=== PATIENT | female | born 1980 | race Caucasian/White ===

== ENCOUNTER 2018-09-30 07:40 | Day surgery (SDC) | payer OTHER ==
[~2018-09-30] VITALS: Ht 170.2 cm; Wt 85.9 kg
[2018-09-30 08:04] VITALS: BP 106/71
[2018-09-30] MEDS ORDERED: OXYTOCIN 10 UNITS/ML, 1ML ONE (08:50)
[2018-09-30] MEDS ORDERED: LIDOCAINE 1%, 20ML ONE (08:50)
[2018-09-30] MEDS ORDERED: SILVER NITRATE STICK TP ONE (08:50)
[2018-09-30] MEDS ORDERED: MISOPROSTOL 200 MCG TABLET ONE (08:50)
[2018-09-30] MEDS ORDERED: VASOPRESSIN 20 UNIT/ML, 1ML ONE (08:51)
[2018-09-30] MEDS ORDERED: METHYLERGONOVINE 0.2 MG/ML IM ONE (08:51)
[2018-09-30] MEDS ORDERED: FENTANYL PF 100 MCG/2ML ONE (09:25)
[2018-09-30] MEDS ORDERED: MIDAZOLAM 1 MG/ML, 2ML ONE (09:27)
[2018-09-30 09:41] LABS: BASOPHILS # (AUTO) 0.04 x10^3/uL (0-0.1); BASOPHILS % (AUTO) 1 % (0-1); EOSINOPHILS # (AUTO) 0.11 x10^3/uL (0-0.4); EOSINOPHILS % (AUTO) 2 % (1-7); LYMPHOCYTES # (AUTO) 1.37 x10^3/uL (1-3.4); LYMPHOCYTES % (AUTO) 23 % (22-44); MD NO; MEAN CORPUSCULAR HEMOGLOBIN 31.3 pg (27.0-34.8); MEAN CORPUSCULAR HGB CONC 33.6 g/dL (32.4-35.8); MEAN CORPUSCULAR VOLUME 93.2 fL (80-100); MEAN PLATELET VOLUME 9.5 fL (7.4-10.4); MONOCYTES # (AUTO) 0.41 x10^3/uL (0.2-0.8); MONOCYTES % (AUTO) 7 % (2-9); NEUTROPHILS # (AUTO) 4.08 x10^3/uL (1.8-6.8); NEUTROPHILS % (AUTO) 68 % (42-75); PLATELET COUNT 249 x10^3/uL (130-400); RED BLOOD COUNT 4.18 x10^6/uL (3.82-5.3); RED CELL DISTRIBUTION WIDTH 13.5 % (9.6-15.2)
[2018-09-30] MEDS ORDERED: KETOROLAC 30 MG/1 ML ONE (09:50)
[2018-09-30] MEDS ORDERED: DEXAMETHASONE 4 MG/ML, 1ML ONE (09:50)
[2018-09-30] MEDS ORDERED: ONDANSETRON 2MG/ML, 2ML ONE (09:50)
[2018-09-30] MEDS ORDERED: PROPOFOL 10 MG/ML, 20ML ONE (09:50)
[2018-09-30] MEDS ORDERED: OXYcodone 5 MG/5 ML ORAL.SOL UDC PO PRN (10:30)
[2018-09-30] MEDS ORDERED: PLEASE ENTER ALLERGIES MC SCH (10:30)
[2018-09-30] MEDS ORDERED: HYDROmorphone 2 MG/ML, 1ML IVPush PRN (10:30)
[2018-09-30] MEDS ORDERED: ACETAMINOPHEN 325 MG TABLET PO PRN (10:30)
[2018-09-30] MEDS ORDERED: DIAZEPAM 5 MG/ML, 2ML IVPush PRN (10:30)
[2018-09-30] MEDS ORDERED: ONDANSETRON 2MG/ML, 2ML IV PRN ×2 (10:30→12:30)
[2018-09-30] MEDS ORDERED: MEPERIDINE/PF 25MG/0.5ML IVPush PRN (10:30)
[2018-09-30] MEDS ORDERED: ONDANSETRON ODT 8 MG PO PRN (10:30)
[2018-09-30] MEDS ORDERED: FENTANYL PF 100 MCG/2ML IV PRN (10:30)
[2018-09-30 10:34] VITALS: BP 86/41
[2018-09-30] MEDS ORDERED: ACETAMINOPHEN 325 MG TABLET ONE (10:53)
[2018-09-30] MEDS ORDERED: morphine SULFATE 10 MG/ML, 1ML IV PRN (12:30)
[2018-09-30] MEDS ORDERED: OXYcodone/APAP 5/325MG TABLET PO PRN (12:30)
[2018-09-30] MEDS ORDERED: PROMETHAZINE 25 MG/ML, 1ML IV ONE (12:30)
[2018-09-30] MEDS ORDERED: KETOROLAC 30 MG/1 ML IV PRN (12:30)
[2018-09-30] MEDS ORDERED: PROMETHAZINE 12.5 MG SUPP PR ONE (12:30)
== END 2018-09-30 13:05 | disposition home or self-care (01) ==
LOC: OR 07:40 → 4NOR 07:49 → OR 13:05
PROVIDERS: ATTEND Obstetrics & Gynecology
DX: O02.1 Missed abortion (principal)
CPT/HCPCS: 36415; 59820; 84702; 85025; 86850; 86900; 88305; J1100; J1885; J2250; J2405; J2590; J2704; J2790; J3010; J3490; G0378; J2210

== ENCOUNTER → 2020-03-14 | Outpatient (CLI) | payer OTHER | END | disposition home or self-care (01) | LOC: STAR 08:00 | PROVIDERS: ATTEND Obstetrics & Gynecology | DX: Z01.818 Encounter for other preprocedural examination (principal); Z11.59 Encounter for screening for other viral diseases | CPT/HCPCS: 36415; 87635 ==

== ENCOUNTER 2020-03-22 15:19 | Inpatient (IN) | payer OTHER ==
[~2020-03-22] VITALS: Ht 170.2 cm; Wt 107.0 kg
[2020-03-26] MEDS ORDERED: OXYTOCIN 30U/ 0.9% NaCL 500ML 500 ML IV ONE (21:52)
[2020-03-26] MEDS ORDERED: D5%-LACTATED RINGERS 1,000 ML IV SCH (21:52)
[2020-03-26] MEDS ORDERED: OXYTOCIN 30U/ 0.9% NaCL 500ML 500 ML IV PRN (21:52)
[2020-03-26] MEDS ORDERED: METOCLOPRAMIDE 5 MG/ML, 2ML IVPush PRN (22:00)
[2020-03-26] MEDS ORDERED: SODIUM CITRATE/CITRIC ACID 30 ML UDC PO PRN (22:00)
[2020-03-26] MEDS ORDERED: FENTANYL PF 100 MCG/2ML IV PRN (22:00)
[2020-03-26] MEDS ORDERED: TERBUTALINE 1 MG/ML, 1ML SQ PRN (22:00)
[2020-03-26] MEDS ORDERED: MISOPROSTOL 25 MCG TABLET VG PRN (22:00)
[2020-03-26] MEDS ORDERED: FENTANYL PF 100 MCG/2ML IVPush PRN (22:00)
[2020-03-26] MEDS ORDERED: TERBUTALINE 1 MG/ML, 1ML IVPush PRN (22:00)
[2020-03-26] MEDS: LACTATED RINGERS 1,000 ML IV SCH (22:20)
[2020-03-26] MEDS ORDERED: MISOPROSTOL 25 MCG TABLET ONE (22:25)
[2020-03-26] MEDS ORDERED: NEWBORN KIT ONE (22:26)
[2020-03-26] MEDS ORDERED: MISOPROSTOL 200 MCG TABLET ONE (22:26)
[2020-03-26] MEDS ORDERED: OXYTOCIN 30U/ 0.9% NaCL 500ML 500 ML ONE (22:26)
[2020-03-26 22:36] LABS: BASOPHILS # (AUTO) 0.04 x10^3/uL (0-0.1); BASOPHILS % (AUTO) 0 % (0-1); EOSINOPHILS # (AUTO) 0.04 x10^3/uL (0-0.4); EOSINOPHILS % (AUTO) 0 % (1-7); LYMPHOCYTES % (AUTO) 17 % (22-44); MD NO; MEAN CORPUSCULAR HEMOGLOBIN 32.1 pg (27.0-34.8); MEAN CORPUSCULAR HGB CONC 33.3 g/dL (32.4-35.8); MEAN CORPUSCULAR VOLUME 96.2 fL (80-100); MEAN PLATELET VOLUME 10.4 fL (7.4-10.4); MONOCYTES % (AUTO) 6 % (2-9); NEUTROPHILS # (AUTO) 9.65 x10^3/uL (1.8-6.8); NEUTROPHILS % (AUTO) 76 % (42-75); PLATELET COUNT 227 x10^3/uL (130-400); RED BLOOD COUNT 4.03 x10^6/uL (3.82-5.3); RED CELL DISTRIBUTION WIDTH 14.3 % (9.6-15.2)
[2020-03-27] MEDS ORDERED: PENICILLIN GK 5,000,000 UNITS in DEXTROSE 5% 100 ML IVPB ONE (05:00)
[2020-03-27] MEDS ORDERED: ONDANSETRON 2MG/ML, 2ML ONE ×2 (09:13→21:45)
[2020-03-27] MEDS: ONDANSETRON 2MG/ML, 2ML IVPush PRN ×2 (09:21→21:47)
[2020-03-27] MEDS ORDERED: FENTANYL PF 100 MCG/2ML ONE (09:53)
[2020-03-27] MEDS ORDERED: FENTANYL/BUPIV./NS/PF 250 ML EPIDCONT ONE (09:54)
[2020-03-27] MEDS: LACTATED RINGERS 1,000 ML IV SCH ×2 (10:00→10:54)
[2020-03-27] MEDS: PENICILLIN GK 2,500,000 UNITS in DEXTROSE 5% 100 ML IVPB SCH ×4 (10:07→23:13)
[2020-03-27] MEDS ORDERED: BUPIVACAINE 0.25% ONE (10:52)
[2020-03-27] MEDS ORDERED: FENTANYL/BUPIV./NS/PF 250 ML EPIDCONT SCH (11:30)
[2020-03-27] MEDS ORDERED: LACTATED RINGERS 1,000 ML IVBOLUS PRN (11:30)
[2020-03-27] MEDS ORDERED: DIPHENHYDRAMINE 50 MG/ML, 1ML IVPush PRN (11:30)
[2020-03-27] MEDS ORDERED: EPHEDRINE 50 MG/ML, 1ML IVPush PRN (11:30)
[2020-03-27] MEDS ORDERED: NALOXONE 0.4 MG/ML, 1ML IVPush PRN (11:30)
[2020-03-27] MEDS ORDERED: LACTATED RINGERS 1,000 ML IV SCH (11:30)
[2020-03-27] MEDS ORDERED: ONDANSETRON 2MG/ML, 2ML IVPush PRN (11:30)
[2020-03-27] MEDS ORDERED: TERBUTALINE 1 MG/ML, 1ML ONE (19:23)
[2020-03-28] MEDS ORDERED: FENTANYL/BUPIV./NS/PF 250 ML EPIDCONT ONE (00:08)
[2020-03-28] MEDS ORDERED: METOCLOPRAMIDE 5 MG/ML, 2ML ONE (01:56)
[2020-03-28] MEDS ORDERED: SODIUM CITRATE/CITRIC ACID 30 ML UDC ONE ×3 (01:56→02:09)
[2020-03-28] MEDS ORDERED: LACTATED RINGERS 1,000 ML IVBOLUS ONE (02:00)
[2020-03-28] MEDS ORDERED: AZITHROMYCIN 500 MG in SODIUM CHLORIDE 0.9% 250 ML IV ONE (02:00)
[2020-03-28] MEDS ORDERED: SODIUM CITRATE/CITRIC ACID 30 ML UDC PO ONE (02:00)
[2020-03-28] MEDS ORDERED: METOCLOPRAMIDE 5 MG/ML, 2ML IV ONE (02:00)
[2020-03-28] MEDS ORDERED: CEFAZOLIN 1,000 MG ONE ×2 (02:09)
[2020-03-28] MEDS ORDERED: LIDOCAINE-MPF 2% ,5ML ONE ×4 (02:09)
[2020-03-28] MEDS ORDERED: SODIUM BICARBONATE 1 MEQ/ML, 50ML VIAL ONE ×2 (02:09)
[2020-03-28] MEDS ORDERED: OXYTOCIN 10 UNITS/ML, 1ML ONE ×4 (02:10→02:11)
[2020-03-28] MEDS ORDERED: KETOROLAC 30 MG/1 ML ONE (02:11)
[2020-03-28] MEDS: LACTATED RINGERS 1,000 ML IV SCH ×6 (03:15→23:15)
[2020-03-28] MEDS: OXYTOCIN 30U/ 0.9% NaCL 500ML 500 ML IV SCH ×3 (03:15→23:15)
[2020-03-28] MEDS ORDERED: OXYcodone 5 MG/5 ML ORAL.SOL UDC PO PRN (03:30)
[2020-03-28] MEDS ORDERED: SIMETHICONE 80 MG CHEW TAB PO PRN (03:30)
[2020-03-28] MEDS ORDERED: MISOPROSTOL 200 MCG TABLET PR PRN (03:30)
[2020-03-28] MEDS ORDERED: DIPHENHYDRAMINE 50 MG/ML, 1ML IVPush PRN (03:30)
[2020-03-28] MEDS ORDERED: FENTANYL PF 100 MCG/2ML IV PRN (03:30)
[2020-03-28] MEDS ORDERED: MEPERIDINE/PF 25MG/0.5ML IVPush PRN (03:30)
[2020-03-28] MEDS ORDERED: ONDANSETRON 2MG/ML, 2ML IVPush PRN (03:30)
[2020-03-28] MEDS ORDERED: METHYLERGONOVINE 0.2 MG/ML IM PRN (03:30)
[2020-03-28] MEDS ORDERED: MORPHINE SULFATE 4 MG/ML, 1ML IVPush PRN (03:30)
[2020-03-28] MEDS ORDERED: CARBOPROST TROMETHAMINE 250 MCG/ML, 1ML IM PRN (03:30)
[2020-03-28] MEDS ORDERED: ONDANSETRON 2MG/ML, 2ML IV PRN (03:30)
[2020-03-28] MEDS ORDERED: EPHEDRINE 50 MG/ML, 1ML IVPush PRN (03:30)
[2020-03-28] MEDS ORDERED: morphine SULFATE 10 MG/ML, 1ML IVPush PRN ×2 (03:30)
[2020-03-28] MEDS ORDERED: LABETALOL 5MG/ML, 20ML IV PRN (03:30)
[2020-03-28] MEDS: KETOROLAC 30 MG/1 ML IV SCH ×4 (03:30→22:01)
[2020-03-28] MEDS ORDERED: ACETAMINOPHEN 325 MG TABLET PO PRN (03:30)
[2020-03-28] MEDS ORDERED: OXYcodone 5 MG/5 ML ORAL.SOL UDC ONE (05:08)
[2020-03-28 05:45] VITALS: BP 99/62
[2020-03-28 07:40] VITALS: BP 100/65
[2020-03-28] MEDS: PRENATAL VIT/IRON/FA 1 EACH TABLET PO SCH (09:09)
[2020-03-28] MEDS: DOCUSATE 100 MG CAPSULE PO PRN ×2 (09:09→22:01)
[2020-03-28] MEDS: OXYcodone IR 5MG TABLET PO PRN ×4 (09:10→18:32)
[2020-03-28 12:40] LABS: MEAN CORPUSCULAR HGB CONC 32.7 g/dL (32.4-35.8); MEAN CORPUSCULAR VOLUME 97.7 fL (80-100); MEAN PLATELET VOLUME 11.3 fL (7.4-10.4); PLATELET COUNT 160 x10^3/uL (130-400); RED BLOOD COUNT 3.18 x10^6/uL (3.82-5.3); RED CELL DISTRIBUTION WIDTH 14.6 % (9.6-15.2)
[2020-03-28 13:00] LABS: BASOPHILS # (AUTO) 0.07 x10^3/uL (0-0.1); BASOPHILS % (AUTO) 1 % (0-1); EOSINOPHILS # (AUTO) 0.02 x10^3/uL (0-0.4); EOSINOPHILS % (AUTO) 0 % (1-7); LYMPHOCYTES # (AUTO) 1.53 x10^3/uL (1-3.4); LYMPHOCYTES % (AUTO) 11 % (22-44); MD SCAN; MONOCYTES # (AUTO) 0.83 x10^3/uL (0.2-0.8); MONOCYTES % (AUTO) 6 % (2-9); NEUTROPHILS # (AUTO) 11.25 x10^3/uL (1.8-6.8); NEUTROPHILS % (AUTO) 82 % (42-75)
[2020-03-28 13:20] VITALS: BP 97/62
[2020-03-28 17:30] VITALS: BP 112/58
[2020-03-28 20:00] VITALS: BP 97/63
[2020-03-29 00:08] VITALS: BP 100/59
[2020-03-29] MEDS: OXYcodone IR 5MG TABLET PO PRN ×5 (01:22→22:00)
[2020-03-29] MEDS: LACTATED RINGERS 1,000 ML IV SCH ×5 (03:15→19:15)
[2020-03-29] MEDS: KETOROLAC 30 MG/1 ML IV SCH ×5 (03:29→21:33)
[2020-03-29 07:50] VITALS: BP 113/80
[2020-03-29] MEDS: DOCUSATE 100 MG CAPSULE PO PRN ×2 (08:03→21:33)
[2020-03-29] MEDS: PRENATAL VIT/IRON/FA 1 EACH TABLET PO SCH (08:03)
[2020-03-29] MEDS: OXYTOCIN 30U/ 0.9% NaCL 500ML 500 ML IV SCH ×2 (09:15→19:15)
[2020-03-29 20:26] VITALS: BP 106/67
[2020-03-29] MEDS: IBUPROFEN 800 MG TABLET PO PRN (21:36)
[2020-03-30] MEDS: LACTATED RINGERS 1,000 ML IV SCH ×2 (01:50)
[2020-03-30] MEDS: OXYTOCIN 30U/ 0.9% NaCL 500ML 500 ML IV SCH (01:51)
[2020-03-30] MEDS: PRENATAL VIT/IRON/FA 1 EACH TABLET PO SCH (08:05)
[2020-03-30] MEDS: IBUPROFEN 800 MG TABLET PO PRN (08:05)
[2020-03-30] MEDS: OXYcodone IR 5MG TABLET PO PRN (08:05)
[2020-03-30] MEDS: DOCUSATE 100 MG CAPSULE PO PRN (08:05)
[2020-03-30 08:10] VITALS: BP 104/71
[2020-03-30] MEDS ORDERED: IBUP-1222 PO (09:53)
[2020-03-30] MEDS ORDERED: OXYC-302 PO (09:53)
== END 2020-03-30 12:00 | disposition home or self-care (01) | DRG 788 ==
LOC: LDIP 03-26 21:21 → 2NW 03-28 05:40
PROVIDERS: ADMIT Obstetrics & Gynecology; ATTEND Obstetrics & Gynecology
PROC: 10D00Z1 Extraction of Products of Conception, Low, Open Approach (ICD-10-PCS; principal; 2020-03-28)
PROC: 10907ZC Drainage of Amniotic Fluid, Therapeutic from Products of Conception, Via Natural or Artificial Opening (ICD-10-PCS; 2020-03-28)
DX: O48.0 Post-term pregnancy (principal); O09.513 Supervision of elderly primigravida, third trimester; O76 Abnormality in fetal heart rate and rhythm complicating labor and delivery; O99.824 Streptococcus B carrier state complicating childbirth; O62.1 Secondary uterine inertia; Z20.828 Contact with and (suspected) exposure to other viral communicable diseases; Z37.0 Single live birth; Z3A.40 40 weeks gestation of pregnancy; Z80.41 Family history of malignant neoplasm of ovary
CPT/HCPCS: 36415; J3490; 85025; 86592; 86850; 86900; 87635; G0378; J0456; J0690; J1885; J2405; J2540; J3010; J2590; J2765; J7050; J7120